=== PATIENT | male | born 1965 | race African-American/Black ===

== ENCOUNTER 2018-12-23 09:09 | Emergency (ER) | payer OTHER ==
[~2018-12-23] VITALS: Ht 175.3 cm; Wt 88.5 kg
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
[2018-12-23 10:00] VITALS: BP 125/86
== END 2018-12-23 10:00 | disposition home or self-care (01) ==
LOC: ER 09:09
DX: S00.33XA Contusion of nose, initial encounter (principal); I48.91 Unspecified atrial fibrillation; I25.10 Atherosclerotic heart disease of native coronary artery without angina pectoris; W01.198A Fall on same level from slipping, tripping and stumbling with subsequent striking against other object, initial encounter; Y93.89 Activity, other specified; Y92.89 Other specified places as the place of occurrence of the external cause; Y99.8 Other external cause status
CPT/HCPCS: 70150; 99283

== ENCOUNTER → 2018-12-24 | Outpatient (CLI) | payer OTHER ==
[2018-12-23 10:00] VITALS: BP 125/86
--- NOTE | 2018-12-24 16:02 | CARD ---
MR#: [id number] Date of Study: 12/24/2018 Ordering Physician: FERNY ACKERMAN, Referring Physician: FERNY ACKERMAN, Tech: Lucero Clemons APPROVED REPORT EXAM: Two-dimensional and M-mode echocardiogram with Doppler and color Doppler. Other Information Quality : AverageHR: 78bpm INDICATION Atrial Fibrillation RISK FACTORS Hypertension Smoking 2D DIMENSIONS Left Atrium(2D)2.3 (1.6-4.0cm)IVSd1.0 (0.7-1.1cm) Aortic Root(2D)3.4 (2.0-3.7cm)LVDd5.0 (3.9-5.9cm) LVOT Diameter2.2 (1.8-2.4cm)PWd1.2 (0.7-1.1cm) LVDs3.3 (2.5-4.0cm)FS (%) 33.7 % SV74.2 ml Aortic Valve AoV Peak Guerrero.132.8cm/sAoV VTI25.5cm AO Peak GR.7.1mmHgLVOT Peak Guerrero.114.6cm/s LVOT VTI 21.13cmAO Mean GR.4mmHg DESIRAE (VMAX)3.17uy4DPM (VTI)3.10cm2 Mitral Valve MV E Cnkacidn08.7cm/sMV DECEL [id number] MV A Argydmpa48.7cm/sE/A Ratio1.0 Pulmonary Valve PV Peak Smfvzbjp418.8cm/sPV Peak Grad.6mmHg Tricuspid Valve TR P. Gtdqpkie897ks/sRAP [id number] TR Peak Gr.39grYtRBBA96rqSo Pulmonary Vein S1 Asnozwjp20.5cm/sD2 Kgwailya69.2cm/s LEFT VENTRICLE The left ventricle is normal size. There is mild concentric left ventricular hypertrophy. The left ve ntricular systolic function is low normal. The Ejection Fraction is 50-55%. There is normal LV segmen alicia wall motion. The left ventricular diastolic function and filling is normal for age. RIGHT VENTRICLE The right ventricle is borderline dilated. There is normal right ventricular wall thickness. The righ t ventricular systolic function is normal. ATRIA The left atrium size is normal. The right atrium size is normal. The interatrial septum is intact wit h no evidence for an atrial septal defect or patent foramen ovale as noted on 2-D or Doppler imaging. AORTIC VALVE The aortic valve is normal in structure and function. Doppler and Color Flow revealed no significant aortic regurgitation. There is no significant aortic valvular stenosis. MITRAL VALVE The mitral valve is normal in structure and function. There is no evidence of mitral valve prolapse. There is no mitral valve stenosis. Doppler and Color-flow revealed trace mitral regurgitation. TRICUSPID VALVE The tricuspid valve is normal in structure and function. Doppler and Color Flow revealed no tricuspid valve regurgitation noted. There is no tricuspid valve stenosis. PULMONIC VALVE The pulmonic valve is not well visualized. Doppler and Color Flow revealed no pulmonic valvular regur gitation. GREAT VESSELS The aortic root is normal in size. The IVC is normal in size and collapses >50% with inspiration. PERICARDIAL EFFUSION There is no evidence of significant pericardial effusion. Critical Notification Critical Value: No <Conclusion> The left ventricle is normal size. The left ventricular systolic function is low normal. The Ejection Fraction is 50-55%. There is mild concentric left ventricular hypertrophy. There is no significant aortic valvular stenosis. Doppler and Color Flow revealed no significant aortic regurgitation. Doppler and Color-flow revealed trace mitral regurgitation. Doppler and Color Flow revealed no tricuspid valve regurgitation noted. Signed by : Sean Gibbs MD Electronically Approved : 12/24/2018 16:02:09
== END | disposition home or self-care (01) ==
LOC: ECHO 10:49
PROVIDERS: ATTEND Internal Medicine Cardiovascular Disease
DX: I48.91 Unspecified atrial fibrillation (principal); F17.200 Nicotine dependence, unspecified, uncomplicated; I11.9 Hypertensive heart disease without heart failure
CPT/HCPCS: 93306